=== PATIENT | female | born 1965 ===

== ENCOUNTER 2022-09-18 09:48 | Emergency (ER) | payer MEDICARE, OTHER ==
[~2022-09-18] VITALS: Ht 167.6 cm; Wt 63.5 kg
[2022-09-18] MEDS ORDERED: CLOP75 PO ×2 (10:37→10:40)
[2022-09-18] MEDS ORDERED: Aspirin EC81 MG PO ×2 (10:37→10:38)
[2022-09-18] MEDS ORDERED: SYNTHROID125 MCG PO ×2 (10:37→10:41)
[2022-09-18] MEDS ORDERED: Zocor20 MG PO ×2 (10:37→10:40)
[2022-09-18] MEDS ORDERED: MECL25 PO ×2 (10:37→10:41)
== END 2022-09-18 11:02 | disposition home or self-care (01) ==
LOC: ER 09:48
DX: Z76.0 Encounter for issue of repeat prescription (principal); R42 Dizziness and giddiness; Z79.890 Hormone replacement therapy; Z79.899 Other long term (current) drug therapy; Z95.5 Presence of coronary angioplasty implant and graft
CPT/HCPCS: 99281

== ENCOUNTER → 2022-10-08 | Outpatient (CLI) | payer MEDICARE, OTHER ==
[~2022-10-08] MED LIST: Aspirin EC81 MG PO; CLOP75 PO; MECL25 PO; SYNTHROID125 MCG PO; Zocor20 MG PO
[2022-10-08 14:53] LABS: BASOPHILS ABSOLUTE AUTO 0.07 K/mm3 (0.00-0.23); BASOPHILS PERCENT AUTO 2 % (0-2); EOSINOPHILS ABSOLUTE AUTO 0.17 K/mm3 (0.00-0.68); EOSINOPHILS PERCENT AUTO 4 % (0-6); Hematocrit 37.4 % (33.0-51.0); Hemoglobin 12.5 g/dL (11.5-16.0); IMMATURE GRAN ABSOLUTE AUTO 0.02 K/mm3 (0.00-0.10); IMMATURE GRAN PERCENT AUTO 0 % (0-1); LYMPHOCYTES ABSOLUTE AUTO 1.25 K/mm3 (0.84-5.20); LYMPHOCYTES PERCENT AUTO 26 % (21-46); MONOCYTES ABSOLUTE AUTO 0.34 K/mm3 (0.16-1.47); MONOCYTES PERCENT AUTO 7 % (4-13); Mean Corpuscular HGB 31.6 pg (26.0-34.0); Mean Corpuscular HGB Conc 33.4 g/dL (31.5-36.5); Mean Corpuscular Volume 94 fL (80-100); Mean Platelet Volume 9.1 fL (9.1-12.4); NEUTROPHILS ABSOLUTE AUTO 2.89 K/mm3 (1.96-9.15); NEUTROPHILS PERCENT AUTO 61 % (41-73); Platelet Count 217 K/mm3 (150-400); RDW Coefficient Variation 13.5 % (11.7-14.2); RDW Standard Deviation 47.1 fL (35.1-46.3); Red Blood Cell Count 3.96 M/mm3 (3.80-5.20); White Blood Cell Count 4.74 K/mm3 (4.00-11.30)
[2022-10-08 15:56] LABS: Alanine Aminotransfer (ALT/SGP 34 U/L (12-78); Albumin, Blood 4.3 g/dL (3.4-5.0); Albumin/Globulin Ratio 1.2 (0.8-1.8); Alk Phos 54 U/L (50-136); Anion Gap 5 mmol/L (6-16); Aspartate Aminotrans (AST/SGOT 42 U/L (12-37); Bilirubin, Total 0.5 mg/dL (0.1-1.0); Blood Urea Nitrogen 13 mg/dL (8-24); Bun/Creatinine Ratio 16.2 (12.0-20.0); CO2, Blood 29 mmol/L (21-32); Chloride, Blood 108 mmol/L (98-108); Cholesterol 161 mg/dL (50-200); Globulin, Blood 3.7 g/dL (2.2-4.0); Glomerular Filtration Rate 85 (60-); Glucose, Blood 96 mg/dL (70-99); HDL Cholesterol 80 mg/dL (>39); LDL/HDL RATIO 0.8; Low Density Lipoprotein Chol 62 mg/dL (0-110); Sodium, Blood 142 mmol/L (136-145); Triglycerides 93 mg/dL (30-160); Very Low Density Lipoprot Chol 18 mg/dL (6-32)
[2022-10-09 10:10] LABS: HIV AB/P24 AG SCREEN Non Reactive (Non Reactive)
== END | disposition home or self-care (01) ==
LOC: LAB SHORT 13:58
PROVIDERS: Family Medicine
DX: Z00.00 Encounter for general adult medical examination without abnormal findings (principal); Z11.59 Encounter for screening for other viral diseases; Z13.6 Encounter for screening for cardiovascular disorders; E03.9 Hypothyroidism, unspecified; E11.9 Type 2 diabetes mellitus without complications; R47.81 Slurred speech
CPT/HCPCS: 80053; 80061; 83036; 84443; 85025; 86803; 87389

== ENCOUNTER → 2022-12-17 | Outpatient (CLI) | payer OTHER ==
[2022-12-19 17:09] LABS: HPV 16 Negative (Negative); HPV 18 Negative (Negative); HPV OTHER HR TYPES Positive (Negative)
== END | disposition home or self-care (01) ==
LOC: LAB SHORT 12:00 → LAB 12:00
PROVIDERS: Family Medicine
DX: Z01.419 Encounter for gynecological examination (general) (routine) without abnormal findings (principal)
CPT/HCPCS: 87624; G0145

== ENCOUNTER 2023-04-28 08:17 | Day surgery (SDC) | payer OTHER ==
[2023-04-28] VITALS (16 sets, daily range): BP systolic 80–136; BP diastolic 55–104
[~2023-04-28 08:17] MED LIST changes: +1/2 NS 250ml250 ML; +FLUT.05NI; +Isosorbide Mono30 MG PO
[2023-04-28] MEDS ORDERED: CARV3.125 PO (09:26)
[2023-04-28] MEDS ORDERED: NITR.4SL SL (09:29)
--- NOTE | 2023-04-28 11:15 | NUR ---
PATIENT ARRIVED BACK TO RECOVERY ROOM SITTING UPRIGHT IN RECLINER. R RADIAL TR BAND FULLY INFLATED. SITE C/D/I SOFT/NONTENDER, NO EVIDENCE OF HEMATOMA. VSS ON RA. PATIENT DENYING ANY PAIN.
--- NOTE | 2023-04-28 11:54 | NUR ---
PATIENT SITTING UPRIGHT IN RECLINER. R RADIAL TR BAND FULLY INFLATED. SITE C/D/I SOFT/NONTENDER, NO EVIDENCE OF HEMATOMA. VSS ON RA. PATIENT TOLERATING PO INTAKE WELL. PATIENT DENYING ANY PAIN
--- NOTE | 2023-04-28 12:30 | NUR ---
INITAL 2 CC OF AIR REMOVED FROM R RADIAL TR BAND. PATIENT AMBULATING TO BATHROOM AND VOIDING WITHOUT DIFFICULTY. R RADIAL SITE BEGINNIING TO BLEED. 2 CC OF AIR PUT BACK IN. SITE C/D/I SOFT/NONTENDER, NO EVIDENCE OF BLEEDING
--- NOTE | 2023-04-28 13:05 | NUR ---
2 CC OF AIR REMOVED FROM R RADIAL TR BAND. NO EVIDNEC OF BLEEDING. SITE C/D/I SOFT/NONTENDER. VSS ON RA.
--- NOTE | 2023-04-28 14:00 | NUR ---
PATIENT COMPLAINING OF ACHING HEADACHE, PO TYLENOL GIVEN PER VERBAL ORDER FROM DR CORONA.
--- NOTE | 2023-04-28 14:01 | NUR ---
ALL AIR REMOVED FROM RADIAL TR BAND. SITE C/D/I SOFT/NONTENDER, NO EVIDENCE OF BLEEDING. PATIENT DENYING ANY PAIN.
--- NOTE | 2023-04-28 14:30 | NUR ---
PATIENT DISCHARGED HOME AT THIS TIME. CLOTH DOT APPLIED TO R RADIAL SITE WITH ARM BOARD, PATIENT INSTRUCTED ON RADIAL SITE CARE. SITE C/D/I SOFT/NONTENDER, NO EVIDENCE OF BLEEDING. VSS ON RA. PATIENT DISCHARGE INSTRUCTIONS REVIEWED WITH PATIENT. ALL QUESTIONS WERE ANSWERED. PIV REMOVED WITHOUT DIFFICULTY, CATHETER INTACT. HEADACHE RELIEVED WITH TYLENOL. PATIENT WHEELED TO HOSPITAL ENTRANCE AND FRIEND ABLE TO PROVIDE TRANSPORTATION.
== END 2023-04-28 14:30 | disposition home or self-care (01) ==
LOC: MHTC 08:17
DX: T82.855A Stenosis of coronary artery stent, initial encounter (principal); Y71.8 Miscellaneous cardiovascular devices associated with adverse incidents, not elsewhere classified; I25.119 Atherosclerotic heart disease of native coronary artery with unspecified angina pectoris; R00.1 Bradycardia, unspecified; R00.2 Palpitations; Z95.5 Presence of coronary angioplasty implant and graft; I10 Essential (primary) hypertension; E78.5 Hyperlipidemia, unspecified; E03.9 Hypothyroidism, unspecified; F17.210 Nicotine dependence, cigarettes, uncomplicated; Z88.5 Allergy status to narcotic agent; Z79.82 Long term (current) use of aspirin; Z79.01 Long term (current) use of anticoagulants; Z79.899 Other long term (current) drug therapy
CPT/HCPCS: 76937; 85347; 93454; 99152; 99153; A9270; C1725; C1769; C1874; C1887; C1894; C9600; J1644; J2250; J2371; J3010; J3246; J7030; J7050; Q9967